=== PATIENT | female | born 1985 | race Caucasian/White ===

== ENCOUNTER 2017-01-17 13:33 | Emergency (ER) | payer OTHER ==
[2017-01-17 20:20] LABS: RED BLOOD COUNT 4.73 M/UL (4.00-5.10); WHITE BLOOD COUNT 9.4 K/UL (4.5-11.0)
[2017-01-17 20:29] LABS: BUN/CREATININE RATIO 17 (0-10)
== END 2017-01-17 21:42 | disposition home or self-care (01) ==
LOC: ER1 13:33
PROVIDERS: Family Medicine
DX: K52.9 Noninfective gastroenteritis and colitis, unspecified (principal); Z90.49 Acquired absence of other specified parts of digestive tract; Z88.2 Allergy status to sulfonamides
CPT/HCPCS: 36415; 80053; 81001; 82150; 82550; 82553; 83690; 83874; 84484; 84703; 85025; 96361; 96374; 96375; 99284; J1885; J2405; J7050; Q9962